=== PATIENT | male | born 1995 | race Caucasian/White ===

== ENCOUNTER 2018-05-11 01:28 | Emergency (ER) | payer OTHER ==
[2018-05-11 01:37] VITALS: TEMP 36.8; O2SAT 97; Ht 167.6 cm
--- NOTE | 2018-05-11 01:43 | EMERGENCY ROOM VISIT NOTE ---
History Report prepared by Ady: Lani Mendez Under the Supervision of: Dr. Richar Brooks M.D. 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 He reports he was brought the ED by ambulance after drinking tonight. He states that tonight he was "just chilling" and drank "a little bit of everything." The patient denies any headache, chest pain, or neck pain. HPI and ROS limited due to alcohol intoxication. 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 HPI and ROS limited due to alcohol intoxication. Past Medical & Surgical Medical Problems: (1) No significant past medical history Family History FH: diabetes mellitus High blood pressure Social History Smokeless Tobacco Use: No Alcohol Use: occasionally Housing Status: lives with family Current/Historical Medications Unable to Obtain Active Prescriptions or Reported Meds Allergies Coded Allergies: No Known Allergies (Unverified , 05/22/10) Physical Exam Vital Signs Date Time Temp Pulse Resp B/P (MAP) Pulse Ox O2 Delivery O2 Flow Rate FiO2 05/11/18 06:05 72 18 107/63 100 Room Air 05/11/18 05:11 58 05/11/18 04:49 57 18 93/40 95 Room Air 05/11/18 03:01 107/57 05/11/18 03:00 60 18 94 05/11/18 02:01 115/59 05/11/18 02:00 69 18 93 05/11/18 01:38 96 05/11/18 01:37 36.8 86 18 134/63 97 Room Air 05/11/18 01:37 97 Room Air Physical Exam GENERAL: Patient is heavily intoxicated. Answering questions and sometimes repeating them. Smells of alcohol. Well appearing and in no acute distress. HEAD: No evidence of Trauma. AT/NC EYES: Injected conjunctiva. Normal EOM. Pupils equal/reactive. ENT: Mucous membranes moist, no nasal congestion. NECK: No step-offs, no adenopathy, no meningismus, trachea is midline. LUNGS: No dyspnea. Clear to auscultation and equal bilaterally. No wheeze, no rhonchi. HEART: Regular rate and rhythm. No murmurs, rubs, gallops appreciated. GI: Abdomen soft, nontender, no peritonitis. Bowel sounds positive. No masses appreciated. BACK: No midline tenderness, no stepoffs, no CVA tenderness EXTREMITIES: Normal motion all extremities, no cyanosis, no edema. NEUROLOGIC: Intoxicated. Awake Alert, oriented. No acute motor or sensory deficits, no focal weakness, cranial nerves grossly intact. SKIN: No rash, no jaundice, no diaphoresis. Medical Decision & Procedures Laboratory Results 05/11/18 01:45 Test 05/11/18 01:45 Anion Gap 8.0 mmol/L (3-11) Estimated GFR () 114.4 Estimated GFR (Non- 98.7 BUN/Creatinine Ratio 9.8 (10-20) Calcium Level 8.8 mg/dl (8.5-10.1) Ethyl Alcohol mg/dL 222.6 mg/dl (0-3) Laboratory results as reviewed by me. ED Course 0134: The patient was evaluated in room B11. A complete history and physical exam was performed. 0605: Reevaluated the patient. He is awake, interactive, and no longer appears intoxicated. He is requesting discharge. His plan is to use [employer] to get back to his apartment. Discussed the dangers of heavy alcohol intoxication. Discussed results and discharge instructions: He verbalized understanding and agreement. The patient is ready for discharge. Medical Decision Differential: Alcohol Intoxication, Drug Intoxication, Electrolyte Abnormality, Trauma, Intracranial Event, Toxicological, Excited Delirium, Serotonin Syndrome , amongst other pathologies entertained. 23 yr old intoxicated male brought in by EMS after being found intoxicated downtown without sober friend. Patient with no evidence nor history for trauma. Protecting airway and breathing comfortably throughout ED stay. EtOH positive. Monitored and discharged when awake, alert, oriented and denies any complaints. Head Trauma GCS Score: 15 Medication Reconcilliation Current Medication List: was personally reviewed by me Blood Pressure Screening Patient's blood pressure: Normal blood pressure Blood pressure disposition: Did not require urgent referral Impression Primary Impression: Alcohol abuse Additional Impression: Alcohol intoxication Scribe Attestation The scribe's documentation has been prepared under my direction and personally reviewed by me in its entirety. I confirm that the note above accurately reflects all work, treatment, procedures, and medical decision making performed by me. Departure Information Dispostion Home / Self-Care Prescriptions Unable to Obtain Active Prescriptions or Reported Meds Referrals No Doctor, Assigned (PCP) Forms HOME CARE DOCUMENTATION FORM, IMPORTANT VISIT INFORMATION Patient Instructions My [facility] Additional Instructions You were evaluated in emergency department for intoxication. This is a sign of Alcohol Abuse and should not be taken lightly. You had a blood alcohol level that was significantly elevated. Over the next 24 hours keep well hydrated and eat light meals. Don't drink any more alcohol. This is important. Please discuss this visit with your Primary Care Provider and/or your loved ones. Unless an exceptional circumstance, the Hospital DOES NOT contact anyone DURING your visit, nor is your Protected Medical Information released to anyone without your approval/request. This means we do not contact your Parents, the Police, etc. However, you will likely receive a bill from the Hospital and/or your Insurance company, which will usually be sent to the Primary Policy [place] (often one's Parents). If the Police were involved you will likely be cited for public intoxication. Please contact [place] Police for further information. Call 911 or return to Emergency Department if you develop: Passing out, difficulty breathing, many episodes of vomiting, blood in vomit or stool, abdominal pain, fevers, or other severe symptoms. We are always here to help if you feel you need further evaluation or treatment. Problem Qualifiers
[2018-05-11 02:33] LABS: BLOOD UREA NITROGEN 11 mg/dl (7-18); CALCIUM 8.8 mg/dl (8.5-10.1); CARBON DIOXIDE 29 mmol/L (21-32); CREATININE 1.07 mg/dl (0.60-1.40); GLUCOSE 91 mg/dl (70-99); POTASSIUM 3.5 mmol/L (3.5-5.1); SODIUM 142 mmol/L (136-145)
[2018-05-11 06:05] VITALS: BP 107/63; PULSE 72; O2SAT 100
== END 2018-05-11 06:33 | disposition home or self-care (01) ==
LOC: EDBD 01:28 → C.EDB 01:28
DX: F10.120 Alcohol abuse with intoxication, uncomplicated (principal); Y90.7 Blood alcohol level of 200-239 mg/100 ml; Z83.3 Family history of diabetes mellitus; Z82.49 Family history of ischemic heart disease and other diseases of the circulatory system